=== PATIENT | female | born 1950 | race Caucasian/White ===

== ENCOUNTER 2021-04-26 08:10 | Observation (INO) ==
[2021-04-26] MEDS ORDERED: CeFAZolin Syr 2,000MG/20 ML 2,000 MG/20 ML SYRINGE IVPB ONE (08:29)
[2021-04-26] MEDS ORDERED: Ringers Solution, Lactated 1,000 ML IVC SCH ×3 (08:30→16:54)
[2021-04-26] MEDS ORDERED: *HR* OxyCODONE Immed Rel 5 MG TABLET PO PRN ×2 (09:33→13:56)
[2021-04-26] MEDS ORDERED: Ondansetron 4 MG/2 ML VIAL IVP PRN ×3 (09:33→16:54)
[2021-04-26] MEDS ORDERED: *HR* HYDROmorphone PF 0.5 MG/0.5 ML SYRINGE IVP PRN (09:33)
[2021-04-26] MEDS ORDERED: Acetaminophen IV 1,000 MG/100 ML BAG IVPB ONE (09:35)
[2021-04-26] MEDS ORDERED: Famotidine 20 MG/2 ML VIAL IVP ONE (09:35)
[2021-04-26] MEDS ORDERED: Gentamicin 290 MG in 0.9 % Sodium Chloride 100 ML IVPB ONE (10:06)
[2021-04-26] MEDS ORDERED: *HR* FentaNYL (PF) 100 MCG/2 ML VIAL ONE (10:17)
[2021-04-26] MEDS ORDERED: *HR* Propofol 200 MG/20 ML VIAL IVP ONE (10:17)
[2021-04-26] MEDS ORDERED: *HR* Succinylcholine 200 MG/10 ML VIAL IVP ONE (10:18)
[2021-04-26] MEDS ORDERED: Lidocaine -MPF 2% 5 ML VIAL ONE (10:18)
[2021-04-26] MEDS ORDERED: TOTAL JOINT MIXTURE (100ML) INTRAART ONE (10:45)
[2021-04-26] MEDS ORDERED: Povidone-Iodine 45 ML, Sodium Chloride IRRigation 1,000 ML IR ONE (10:45)
[2021-04-26] MEDS ORDERED: Hydrocortisone Sodium Succ 100 MG/2 ML VIAL ONE (10:45)
[2021-04-26] MEDS ORDERED: Vancomycin 1,000 MG VIAL ONE (10:55)
[2021-04-26] MEDS ORDERED: Tobramycin Sulf (Sterile) 1.2 GM VIAL ONE (10:55)
[2021-04-26] MEDS ORDERED: *HR* Midazolam HCl 2 MG/2 ML VIAL ONE (11:01)
[2021-04-26] MEDS ORDERED: EPHEDrine 50 MG/ML VIAL ONE (12:17)
[2021-04-26] MEDS ORDERED: Ondansetron 4 MG/2 ML VIAL ONE (12:19)
[2021-04-26] MEDS ORDERED: Sugammadex Sodium 200 MG/2 ML VIAL IV ONE (12:20)
[2021-04-26] MEDS ORDERED: *HR* HYDROMORPHONE 2 MG/ML VIAL ONE (12:38)
[2021-04-26] MEDS ORDERED: Naloxone 0.4 MG/ML INJ IVP PRN ×2 (13:56→16:54)
[2021-04-26] MEDS ORDERED: *HR* Promethazine 25 MG/ML VIAL IM PRN ×2 (13:56→16:54)
[2021-04-26] MEDS ORDERED: Sennosides 8.6 MG TABLET PO PRN ×2 (13:56→16:54)
[2021-04-26] MEDS ORDERED: *HR* HYDROmorphone 2 MG TABLET PO PRN ×2 (13:56→16:54)
[2021-04-26] MEDS ORDERED: MOM Conc 10 ML UD.LIQ PO PRN ×2 (13:56→16:54)
[2021-04-26] MEDS ORDERED: *HR* Methotrexate 2.5 MG TABLET PO SCH (14:15)
[2021-04-26 15:13] LABS: Basophils # 0.1 K/mcL (0.0-0.2); Basophils % 0.5 %; Eosinophils # 0.1 K/mcL (0.0-0.6); Eosinophils % 0.6 %; Hemoglobin 11.2 g/dL (11.5-15.4); Immature Granulocytes % 1.2 % (0-4); Lymphocytes # 1.9 K/mcL (0.6-4.6); Lymphocytes % 14.5 %; Mean Corpuscular HGB Conc 32.9 g/dL (31.6-35.5); Mean Corpuscular Hemoglobin 34.5 pg (28.0-33.3); Mean Corpuscular Volume 104.6 fL (83.0-100.0); Mean Platelet Volume 8.5 fL (9.4-12.4); Monocytes # 0.4 K/mcL (0.0-1.3); Monocytes % 2.9 %; Neutrophils # 10.3 K/mcL (1.6-8.9); Platelet Count 164 K/mcL (140-400); Red Blood Count 3.25 M/mcL (3.82-4.97); Red Cell Distribution Width 12.7 % (11.5-14.5); Segmented Neutrophils % 80.3 %; White Blood Count 12.9 K/mcL (4.3-11.1)
[2021-04-26] MEDS ORDERED: CeFAZolin 2 GM/120 ML BAG IVPB SCH (16:00)
[2021-04-26] MEDS ORDERED: Ascorbic Acid 500 MG TABLET PO SCH (17:00)
[2021-04-26] MEDS: Ascorbic Acid 500 MG TABLET PO SCH (18:45)
[2021-04-26] MEDS: CeFAZolin 2 GM/120 ML BAG IVPB SCH (19:00)
[2021-04-26] MEDS ORDERED: Mirtazapine 15 MG TABLET PO SCH (21:00)
[2021-04-26] MEDS ORDERED: RIVAROXABAN PO SCH (21:00)
[2021-04-26] MEDS: *HR* Rivaroxaban 10 MG TABLET PO SCH (22:41)
[2021-04-26] MEDS: Mirtazapine 15 MG TABLET PO SCH (22:42)
[2021-04-26] MEDS: *HR* OxyCODONE Immed Rel 5 MG TABLET PO PRN (23:02)
[2021-04-27] MEDS: CeFAZolin 2 GM/120 ML BAG IVPB SCH (03:02)
[2021-04-27 05:00] LABS: Basophils % 0.4 %; Hematocrit 24.9 % (35.3-44.9); Immature Granulocytes % 0.8 % (0-4); Lymphocytes # 0.7 K/mcL (0.6-4.6); Lymphocytes % 8.6 %; Mean Corpuscular HGB Conc 32.1 g/dL (31.6-35.5); Mean Corpuscular Hemoglobin 34.2 pg (28.0-33.3); Mean Corpuscular Volume 106.4 fL (83.0-100.0); Mean Platelet Volume 9.1 fL (9.4-12.4); Monocytes # 0.5 K/mcL (0.0-1.3); Monocytes % 6.5 %; Neutrophils # 6.4 K/mcL (1.6-8.9); Platelet Count 139 K/mcL (140-400); Red Blood Count 2.34 M/mcL (3.82-4.97); Red Cell Distribution Width 12.8 % (11.5-14.5); Segmented Neutrophils % 83.7 %; White Blood Count 7.7 K/mcL (4.3-11.1)
[2021-04-27 05:30] LABS: BUN/Creatinine Ratio 21 (6-26); Blood Urea Nitrogen 13 mg/dL (8-23); Calcium 7.8 mg/dL (8.6-10.3); Carbon Dioxide 29 mEq/L (23-29); Chloride 110 mEq/L (98-107); Glucose 103 mg/dL (70-105); Osmolality,Calculated 294 (280-300); Potassium 4.2 mEq/L (3.5-5.1); Sodium 142 mEq/L (136-145); eGFR For African Americans > 60 (> 60); eGFR For Non-African Americans > 60 (> 60)
[2021-04-27] MEDS: *HR* OxyCODONE Immed Rel 5 MG TABLET PO PRN ×4 (05:35→20:38)
[2021-04-27] MEDS: Folic Acid 1 MG TABLET PO SCH (08:54)
[2021-04-27] MEDS: Multivit/Ca/Min/Fe/FA 1 TAB TABLET PO SCH (08:54)
[2021-04-27] MEDS: Ascorbic Acid 500 MG TABLET PO SCH ×2 (08:54→16:20)
[2021-04-27] MEDS: amLODIPine 5 MG TABLET PO SCH (08:55)
[2021-04-27] MEDS ORDERED: Folic Acid 1 MG TABLET PO SCH (09:00)
[2021-04-27] MEDS ORDERED: amLODIPine 5 MG TABLET PO SCH (09:00)
[2021-04-27] MEDS ORDERED: Multivit/Ca/Min/Fe/FA 1 TAB TABLET PO SCH (09:00)
[2021-04-27] MEDS: predniSONE 5 MG TABLET PO SCH (09:40)
[2021-04-27] MEDS: *HR* Rivaroxaban 10 MG TABLET PO SCH (20:37)
[2021-04-27] MEDS: Mirtazapine 15 MG TABLET PO SCH (20:38)
[2021-04-28] MEDS: *HR* OxyCODONE Immed Rel 5 MG TABLET PO PRN ×3 (03:26→14:16)
[2021-04-28 07:24] LABS: Basophils % 0.2 %; Eosinophils # 0.1 K/mcL (0.0-0.6); Eosinophils % 0.9 %; Hematocrit 22.7 % (35.3-44.9); Hemoglobin 7.4 g/dL (11.5-15.4); Immature Granulocytes % 1.3 % (0-4); Lymphocytes # 1.5 K/mcL (0.6-4.6); Lymphocytes % 27.7 %; Mean Corpuscular HGB Conc 32.6 g/dL (31.6-35.5); Mean Corpuscular Hemoglobin 34.4 pg (28.0-33.3); Mean Corpuscular Volume 105.6 fL (83.0-100.0); Monocytes # 0.5 K/mcL (0.0-1.3); Monocytes % 8.4 %; Neutrophils # 3.4 K/mcL (1.6-8.9); Nucleated Red Blood Cells 0.4 /100 WBC (0); Platelet Count 119 K/mcL (140-400); Red Blood Count 2.15 M/mcL (3.82-4.97); Red Cell Distribution Width 13.3 % (11.5-14.5); Segmented Neutrophils % 61.5 %; White Blood Count 5.5 K/mcL (4.3-11.1)
[2021-04-28 07:39] LABS: BUN/Creatinine Ratio 20 (6-26); Blood Urea Nitrogen 13 mg/dL (8-23); Calcium 8.2 mg/dL (8.6-10.3); Carbon Dioxide 30 mEq/L (23-29); Chloride 110 mEq/L (98-107); Glucose 102 mg/dL (70-105); Osmolality,Calculated 296 (280-300); Potassium 3.6 mEq/L (3.5-5.1); Sodium 143 mEq/L (136-145); eGFR For African Americans > 60 (> 60); eGFR For Non-African Americans > 60 (> 60)
[2021-04-28] MEDS ORDERED: *HR* Methotrexate 2.5 MG TABLET PO SCH (09:00)
[2021-04-28] MEDS: Multivit/Ca/Min/Fe/FA 1 TAB TABLET PO SCH (09:01)
[2021-04-28] MEDS: predniSONE 5 MG TABLET PO SCH (09:01)
[2021-04-28] MEDS: Ascorbic Acid 500 MG TABLET PO SCH (09:01)
[2021-04-28] MEDS: amLODIPine 5 MG TABLET PO SCH (09:01)
[2021-04-28] MEDS: Folic Acid 1 MG TABLET PO SCH (09:01)
[2021-04-28 11:56] VITALS: BP 117/68; PULSE 84; TEMP 97.7; O2SAT 96
== END 2021-04-28 14:53 | disposition home health service (06) ==
LOC: SDCAOSI 08:10 → 4WAOSI 08:10
PROVIDERS: ADMIT Orthopaedic Surgery; ATTEND Orthopaedic Surgery